=== PATIENT | female | born 1965 | race Caucasian/White ===

== ENCOUNTER → 2016-06-04 | Outpatient (CLI) | payer BC ==
--- NOTE | 2016-06-04 11:09 | DX ---
Left Foot - 3 views Indication: Follow-up surgery. Technique: AP, oblique, and lateral views. Comparison: Left foot series dated March 12, 2016. Findings: Mild soft tissue swelling along the medial aspect of the first metatarsal head is unchanged . The bunionectomy defect and mild osteoarthritis at the first metatarsophalangeal joint are unchange d. Small benign focus of dystrophic calcification along the medial base of the proximal phalanx great toe is unchanged. The hardware construct fusing the base of the first metatarsal, medial and middle cuneiforms remains well seated. No perihilar hardware fracture or lucency. Remainder of the foot is otherwise normal. No periostitis suggestive of evolving stress fracture. Min imal dystrophic calcification in the region of the mid plantar fascia is unchanged. Impression: 1. Mild soft tissue swelling along the bunionectomy is unchanged. 2. Fusion construct at the base of the first metatarsal and cuneiform bones remains well seated.
== END ==
LOC: BMCIMAGING 10:25
PROVIDERS: ATTEND Podiatrist Foot & Ankle Surgery
DX: Z09 Encounter for follow-up examination after completed treatment for conditions other than malignant neoplasm (principal); Z98.890 Other specified postprocedural states; Z98.1 Arthrodesis status

== ENCOUNTER → 2016-12-16 | Outpatient (CLI) | payer BC | LOC: BMCIMAGING 15:38 | PROVIDERS: ATTEND Podiatrist Foot & Ankle Surgery | DX: Z47.89 Encounter for other orthopedic aftercare (principal); Z98.890 Other specified postprocedural states ==

== ENCOUNTER → 2017-01-02 | Outpatient (CLI) | payer BC | LOC: BMCIMAGING 15:36 | PROVIDERS: ATTEND Podiatrist Foot & Ankle Surgery | DX: Z09 Encounter for follow-up examination after completed treatment for conditions other than malignant neoplasm (principal); Z98.890 Other specified postprocedural states ==

== ENCOUNTER → 2017-01-25 | Outpatient (CLI) | payer BC | LOC: FIMAGING 11:01 | PROVIDERS: ATTEND Obstetrics & Gynecology Gynecology | DX: Z12.31 Encounter for screening mammogram for malignant neoplasm of breast (principal) | CPT/HCPCS: G0202 ==

== ENCOUNTER → 2017-01-30 | Outpatient (CLI) | payer BC | LOC: BMCIMAGING 15:41 | PROVIDERS: ATTEND Podiatrist Foot & Ankle Surgery | DX: Z09 Encounter for follow-up examination after completed treatment for conditions other than malignant neoplasm (principal); Z98.890 Other specified postprocedural states ==

== ENCOUNTER → 2018-02-18 | Outpatient (CLI) | payer BC, OTHER | LOC: FIMAGING 15:39 | PROVIDERS: ATTEND Obstetrics & Gynecology Gynecology | DX: Z12.31 Encounter for screening mammogram for malignant neoplasm of breast (principal) ==

== ENCOUNTER → 2018-04-07 | Outpatient (CLI) | payer OTHER | LOC: BMCIMAGING 16:22 | PROVIDERS: ATTEND Physician Assistant | DX: M23.91 Unspecified internal derangement of right knee (principal) ==